=== PATIENT | female | born 1990 | race Caucasian/White ===

== ENCOUNTER 2018-03-25 18:16 | Emergency (ER) | payer OTHER ==
[~2018-03-25] VITALS: Ht 154.9 cm; Wt 68.0 kg
[~2018-03-25 18:16] MED LIST: AMOXICILLIN 50500 MG PO; FLEXERIL PO; KEFLEX500 M1 PO; LEXAPRO20 MG PO; NOHOMEMEDICATIONS; PERCOCET 5-3251 EACH PO; ZOFRAN4 MG PO
[2018-03-25 18:38] LABS: URINE BILIRUBIN NEGATIVE (Negative); URINE BLOOD NEGATIVE (Negative); URINE CLARITY CLEAR; URINE COLOR YELLOW; URINE GLUCOSE-RANDOM NEGATIVE (Negative); URINE KETONES NEGATIVE (Negative); URINE LEUKOCYTES-REFLEX NEGATIVE (Negative); URINE NITRITE-REFLEX NEGATIVE (Negative); URINE PROTEIN NEGATIVE (Negative); URINE SPECIFIC GRAVITY >= 1.030 (1.005-1.030); URINE UROBILINOGEN 0.2 E.U./dl (0.2-1.0)
[2018-03-25 18:48] LABS: ABSOLUTE EOSINOPHILS 0.2 thou/uL (0.0-0.7); ABSOLUTE MONOCYTES 0.7 thou/uL (0.0-1.2); ABSOLUTE NEUTROPHILS 3.9 thou/uL (1.6-8.1); BASOPHILS 0.6 %; EOSINOPHILS 3.2 %; HEMATOCRIT 38.1 % (37.0-47.0); HEMOGLOBIN 12.5 gm/dL (12.0-15.0); MCH 26.8 pg (26.0-34.0); MCHC 32.9 g/dL (28.0-37.0); MCV 81.6 fL (80.0-100.0); MPV 8.6 fl. (7.2-11.1); NUCLEATED RBCS 0 /100WBC; PLATELET COUNT* 253 thou/uL (150-400); POLYS 57.2 %; RBC 4.67 mil/uL (4.20-5.00); WBC 6.8 thou/uL (4.0-11.0)
[2018-03-25 19:08] LABS: CALCIUM 8.9 mg/dL (8.5-10.1); CREATININE 0.6 mg/dL (0.6-1.3); POTASSIUM 3.6 mmol/L (3.5-5.1)
[2018-03-25 19:22] LABS: ALBUMIN 3.8 g/dL (3.4-5.0); TOTAL BILIRUBIN 0.3 mg/dL (<0.1-1.0)
[2018-03-25] MEDS ORDERED: TRAMADOL 50 MG50 MG PO (20:54)
[2018-03-25] MEDS ORDERED: NAPROSYN500 MG PO (20:54)
[2018-03-25 21:09] VITALS: BP 115/79
== END 2018-03-25 21:09 | disposition home or self-care (01) ==
LOC: M.ERS 18:16
PROVIDERS: Physician Assistant
DX: R10.31 Right lower quadrant pain (principal); F17.210 Nicotine dependence, cigarettes, uncomplicated

== ENCOUNTER 2018-11-27 16:12 | Emergency (ER) | payer OTHER ==
[~2018-11-27] VITALS: Ht 170.2 cm; Wt 73.0 kg
[~2018-11-27 16:12] MED LIST changes: +NAPROSYN500 MG PO; +TRAMADOL 50 MG50 MG PO
[2018-11-27] MEDS ORDERED: WELLBUTRIN XL300 MG PO (16:31)
[2018-11-27] MEDS ORDERED: INDOMETHACIN 2525 MG PO (18:20)
[2018-11-27 19:32] VITALS: BP 119/72
== END 2018-11-27 19:33 | disposition home or self-care (01) ==
LOC: M.ERS 16:12
DX: R51 Headache (principal); F17.210 Nicotine dependence, cigarettes, uncomplicated; Z98.890 Other specified postprocedural states; Z88.5 Allergy status to narcotic agent

== ENCOUNTER 2019-08-13 12:21 | Emergency (ER) | payer OTHER ==
[~2019-08-13] VITALS: Ht 157.5 cm; Wt 72.6 kg
[~2019-08-13 12:21] MED LIST changes: +INDOMETHACIN 2525 MG PO; +WELLBUTRIN XL300 MG PO
[2019-08-13 12:34] LABS: URINE BILIRUBIN NEGATIVE (Negative); URINE BLOOD NEGATIVE (Negative); URINE CLARITY CLEAR; URINE COLOR YELLOW; URINE GLUCOSE-RANDOM NEGATIVE (Negative); URINE KETONES NEGATIVE (Negative); URINE LEUKOCYTES-REFLEX NEGATIVE (Negative); URINE NITRITE-REFLEX NEGATIVE (Negative); URINE PROTEIN NEGATIVE (Negative); URINE UROBILINOGEN 0.2 E.U./dl (0.2-1.0)
[2019-08-13] MEDS ORDERED: LEXAPRO 10 MG T10 M2 PO (12:38)
[2019-08-13] MEDS ORDERED: NABUMETONE 750750 M1 PO (13:29)
[2019-08-13] MEDS ORDERED: MEDROLDOSEPACK PO (13:29)
[2019-08-13] MEDS ORDERED: ZANAFLEX4 MG PO (13:29)
[2019-08-13] MEDS ORDERED: TYLENOL WITH CO1 TA1 PO (13:29)
[2019-08-13 13:46] VITALS: BP 119/55
== END 2019-08-13 13:47 | disposition home or self-care (01) ==
LOC: M.ERS 12:21
PROVIDERS: Nurse Practitioner Family
DX: Q76.49 Other congenital malformations of spine, not associated with scoliosis (principal); M54.5 Low back pain; F17.210 Nicotine dependence, cigarettes, uncomplicated; Z88.5 Allergy status to narcotic agent; Z98.890 Other specified postprocedural states